=== PATIENT | female | born 2005 | race African-American/Black ===

== ENCOUNTER 2024-04-20 22:06 | Emergency (ER) | payer OTHER, MEDICAID ==
[~2024-04-20] VITALS: Ht 172.7 cm; Wt 61.0 kg
[2024-04-20 22:23] VITALS: O2SAT 100
[2024-04-20 22:58] LABS: CLARITY URINE CLOUDY (CLEAR); COLOR URINE DARK YELLOW (YELLOW); GLUCOSE URINE NEGATIVE (NEGATIVE); KETONES URINE 3+ (NEGATIVE); LEUKOCYTE ESTERASE URINE TRACE (NEGATIVE); NITRITE URINE NEGATIVE (NEGATIVE); OCCULT BLOOD URINE 3+ (NEGATIVE); PH URINE 6.5 (4.5-8.0); PROTEIN URINE 1+ (NEGATIVE); SPECIFIC GRAVITY URINE 1.033 (1.005-1.030)
[2024-04-20 23:06] LABS: *AMPHETAMINES SCREEN URINE NEGATIVE (NEGATIVE); *BARBITURATES SCREEN URINE NEGATIVE (NEGATIVE); *BENZODIAZEPINES SCREEN URINE NEGATIVE (NEGATIVE); *COCAINE SCREEN URINE NEGATIVE (NEGATIVE); CANNABINOID URINE SCREEN PRESUMPTIVE POSITIVE (NEGATIVE); ECSTASY MDMA SCREEN URINE NEGATIVE (NEGATIVE); METHADONE URINE SCREEN NEGATIVE (NEGATIVE); OPIATES URINE SCREEN NEGATIVE (NEGATIVE); PHENCYCLIDINE URINE SCREEN NEGATIVE (NEGATIVE)
[2024-04-20 23:11] LABS: BACTERIA URINE 2+; RBC URINE 25-50 /hpf (0-2); SQUAMOUS EPITHELIAL CELL URINE 1+ /lpf (RARE/1+)
[2024-04-20 23:12] LABS: MUCUS URINE 2+ /lpf (< = 2+); WBC URINE 0-2 /hpf (0-2)
[2024-04-21] MEDS: ZIPRASIDONE MESYLATE 20MG/VIAL IM ONE (00:59)
[2024-04-21] MEDS: LORAZEPAM 2MG/ML INJ IM ONE (00:59)
[2024-04-21] MEDS: DIPHENHYDRAMINE 50MG/ML VIAL IM PRN (01:00)
[2024-04-21 01:35] LABS: BASOPHILS % 0.4 % (0.0-2.0); EOSINOPHILS % 0.6 % (0.0-5.0); HEMATOCRIT. 34.9 % (36.0-48.0); HEMOGLOBIN. 11.2 g/dL (12.0-16.0); LYMPHOCYTES % 21.6 % (20.0-50.0); MEAN CORPUSCULAR HEMOGLOBIN 26.1 pg (28.0-32.0); MEAN CORPUSCULAR HGB CONC 32.1 g/dL (31.0-37.0); MEAN CORPUSCULAR VOLUME 81.5 fL (81.0-99.0); MEAN PLATELET VOLUME 8.3 fl (7.4-10.4); MONOCYTES % 6.8 % (2.0-8.0); NEUTROPHILS % 70.6 % (40.0-76.0); PLATELET 245 x1000/uL (130-400); RED BLOOD CELL COUNT 4.28 mill/uL (4.2-5.4); RED CELL DISTRIBUTION WIDTH 14.3 % (11.6-14.6); WHITE BLOOD COUNT 6.9 x1000/uL (4.5-11.0)
[2024-04-21 01:43] LABS: CHLORIDE 107 mEq/L (98-107); POTASSIUM 3.3 mEq/L (3.5-5.1); SODIUM 138 mEq/L (136-145)
[2024-04-21 01:44] LABS: CARBON DIOXIDE 24 mEq/L (21-32)
[2024-04-21 01:45] LABS: CALCIUM 8.9 mg/dL (8.7-10.4)
[2024-04-21 01:49] LABS: CREATININE 0.8 mg/dL (0.6-1.0); GLUCOSE 111 mg/dL (70-105)
[2024-04-21 01:50] LABS: UREA NITROGEN BLOOD 9 mg/dL (9-23)
[2024-04-21 01:51] LABS: AMMONIA 24 uMol/L (<32)
[2024-04-21 01:51] LABS: CREATINE KINASE 261 IU/L (34-145)
[2024-04-21 01:54] LABS: ETHANOL BLOOD < 10 mg/dL (<10)
[2024-04-21 01:55] LABS: HCG SCREEN NEGATIVE
[2024-04-21] MEDS ORDERED: QUET50TA MT (10:22)
[2024-04-21 10:47] VITALS: BP 123/78; PULSE 63; RESP 14; TEMP 37.05852; O2SAT 100
== END 2024-04-21 10:49 | disposition home or self-care (01) ==
LOC: ER 22:06
DX: F23 Brief psychotic disorder (principal); F12.90 Cannabis use, unspecified, uncomplicated; E87.6 Hypokalemia; Z79.899 Other long term (current) drug therapy
CPT/HCPCS: 80305; 80048; 81003; 81025; 80320; 82550; 82962 ×2; 84703; 85025; 36415; 99291; 82140; 70450; 96372; J1200; J2060; Z7610 ×2; J3486; G0480